=== PATIENT | female | born 1985 | race Caucasian/White ===

== ENCOUNTER 2019-10-17 12:29 | Emergency (ER) | payer BC, SELFPAY ==
--- NOTE | ~2019-10-17 | XR_ITS ---
EXAMINATION: XR abdomen/kub 1V DATE: 10/17/2019 13:12 INDICATION: Right flank pain. TECHNIQUE: A supine view of the abdomen on 2 radiographs was obtained. COMPARISON: CT abdomen and pelvis 10/17/2019 FINDINGS: There are no dilated loops of bowel. There is a phlebolith in right pelvis. There is no uro lithiasis. IMPRESSION: 1. No urolithiasis. Reviewed, dictated and finalized at location E. IMPRESSION: 1. No urolithiasis.
--- NOTE | ~2019-10-17 | CT_ITS ---
EXAMINATION: CT abdomen pelvis wo con DATE: 10/17/2019 13:06 INDICATION: Right flank pain. TECHNIQUE: Computed tomography (CT) of the abdomen and pelvis was performed without intravenous contr ast. Automated exposure control and iterative reconstruction technique were employed. The dose-length product was 1331.68 mGy-cm. COMPARISON: None. FINDINGS: The visualized portions of the lung bases are clear without pneumonia or pleural effusion. The heart size is normal. No pericardial effusion. There is diffuse hepatic steatosis. There are rich ges of cholecystectomy. Calcifications in the spleen are consistent with old granulomatous disease. T he pancreas, adrenal glands, and kidneys are normal. There is no urolithiasis. There are no dilated l oops of bowel. The appendix is normal. There are no pathologically enlarged lymph nodes. There is no free intraperitoneal fluid. There is a supraumbilical ventral hernia containing fat. There is mild th oracolumbar spondylosis. IMPRESSION: 1. No urolithiasis. 2. Diffuse hepatic steatosis. 3. Supraumbilical ventral hernia containing fat. Reviewed, dictated and finalized at location E.
[2019-10-17 12:33] VITALS: BP 125/60; PULSE 91; RESP 18; TEMP 36.8; O2SAT 97
--- NOTE | 2019-10-17 12:46 | ED.ABDPAIN ---
HPI - Abdominal Pain General Chief Complaint: Abdominal Pain <Jerzy Shin PA-C - Last Filed: 10/17/19 14:41> Stated Complaint: right flank pain <Jerzy Shin PA-C - Last Filed: 10/17/19 14:41> Time Seen by Provider: 10/17/19 12:38 <Jerzy Shin PA-C - Last Filed: 10/17/19 14:41> Source: patient <Jerzy Shin PA-C - Last Filed: 10/17/19 14:41> Mode of arrival: ambulatory <Jerzy Shin PA-C - Last Filed: 10/17/19 14:41> Limitations: no limitations <Jerzy Shin PA-C - Last Filed: 10/17/19 14:41> History of Present Illness HPI narrative: Patient is a 34-year-old female who presents with 3 to 4 days of stabbing pain in the right flank had emesis Friday secondary to the pain has had some chills took some Pyridium at home with no improvement. Patient denies similar occurrence in the past. Patient thought she may have a urinary tract infection but has not experienced this type of pain. Patient denies vaginal complaints or bowel changes. Patient has been taking 800 of Motrin and notes that it is the only thing that is helping with her pain and took some today prior to arrival. <Jerzy Shin PA-C - Last Filed: 10/17/19 14:41> Related Data Home Medications: Home Medications Medication Instructions Recorded Confirmed ferrous sulfate 324 mg PO DAILY 01/08/19 02/16/19 <Jerzy Shin PA-C - Last Filed: 10/17/19 14:41> Allergies/Adverse Reactions: Allergies Allergy/AdvReac Type Severity Reaction Status Date / Time No Known Allergies Allergy Verified 10/17/19 12:35 <Jerzy Shin PA-C - Last Filed: 10/17/19 14:41> Review of Systems Review of Systems: All systems reviewed & are unremarkable except as noted in HPI and below <Jerzy Shin PA-C - Last Filed: 10/17/19 14:41> PMFSH Past Medical History Medical History: Medical History (Updated 10/17/19 @ 14:39 by Jerzy Shin PA-C) Anemia due to vitamin B12 deficiency Obesity <Jerzy Shin PA-C - Last Filed: 10/17/19 14:41> Social History Social History: Social History (Updated 10/17/19 @ 12:50 by Jerzy Shin PA-C) Smoking status: Current every day smoker <Jerzy Shin PA-C - Last Filed: 10/17/19 14:41> Exam Narrative: Exam Narrative: GENERAL: Well-appearing, obese, and in no acute distress. HEAD: Normocephalic, atraumatic. EYES: PERRLA and EOMI. ENT: Nares clear, no rhinorrhea or epistaxis. Mucous membranes moist. CHEST: Clear to auscultation. No respiratory distress. No wheezes rales or rhonchi HEART: Regular rate and rhythm. No murmur heard. Normal peripheral pulses. ABDOMEN: Soft, nontender, nondistended EXTREMITIES: Normal range of motion. No edema. SKIN: Warm, dry, no rash. NEURO: No focal deficits. Alert and oriented x3. Cranial nerves II through XII grossly intact PSYCH: Normal mood and affect. <Jerzy Shin PA-C - Last Filed: 10/17/19 14:41> Course Course Emergency Course: Patient in the room aware of case findings treatment plan and diagnosis no high risk changes in the blood work or imaging urinary tract infection is the likely etiology no urolithiasis seen. Patient hydrated and given IV antibiotics in the emergency department <Jerzy Shin PA-C - Last Filed: 10/17/19 14:41> Vital Signs Vital signs: Vital Signs Temperature 98.3 F 10/17/19 12:33 Pulse Rate 91 10/17/19 12:33 Respiratory Rate 18 10/17/19 12:33 Blood Pressure 125/60 10/17/19 12:33 Pulse Oximetry 97 10/17/19 12:33 Temperatur
[2019-10-17 12:52] LABS: Basophils Absolute Auto 0.1 K/mm3 (0.0-0.1); Basophils Percent Auto 0.4 % (0.2-1.2); Eosinophils Absolute Auto 0.4 K/mm3 (0-0.3); Eosinophils Percent Auto 2.8 % (0-4.4); Hematocrit 39.3 % (37.0-47.0); Hemoglobin 12.5 g/dL (12.0-15.0); Immature Granulocyte Absolute 0.06 K/mm3 (0.00-0.031); Immature Granulocyte Percent A 0.5 % (0-0.5); Lymphocytes Absolute Auto 3.69 K/mm3 (0.9-3.2); Lymphocytes Percent Auto 28.5 % (18.3-44.2); Mean Corpuscular HGB Conc 31.8 g/dl (32-36); Mean Corpuscular Hemoglobin 27.5 pg (26-34); Mean Corpuscular Volume 86.4 fl (80-100); Mean Platelet Volume 9.9 fl (7.4-10.4); Monocytes Absolute Auto 0.6 K/mm3 (0.1-0.6); Monocytes Percent Auto 4.6 % (2.6-8.5); Neutrophils Absolute Auto 8.2 K/mm3 (1.3-6.7); Neutrophils Percent Auto 63.2 % (45.5-73.1); Platelet Count Result 287 k/mm3 (150-375); Red Blood Count 4.55 M/mm3 (4.2-5.4); Red Cell Distribution Width 14.6 % (11.5-14.5)
[2019-10-17 13:08] LABS: Alanine Aminotransferase 34 U/L (4-35); Albumin Level 4.5 g/dL (3.5-5.1); Alkaline Phosphatase 106 U/L (38-126); Anion Gap 15.2 mmol/L (7-16); Aspartate Amino Transferase 31 U/L (14-36); Bilirubin,Total 0.4 mg/dL (0.2-1.3); Blood Urea Nitrogen 14 mg/dL (7-17); Calcium 9.1 mg/dL (8.4-10.2); Carbon Dioxide 24 mmol/L (22-30); Chloride 104 mmol/L (98-107); Estimated CRCL calculation 120 ml/min; Estimated Glomerular Filt Rate > 60; Glucose 124 mg/dL (65-105); Potassium 4.2 mmol/L (3.4-5.0); Sodium 139 mmol/L (137-145)
[2019-10-17 13:20] LABS: Add Urine Microscopic? YES; Appearance Urine Cloudy (Clear); Bacteria Urine Trace /hpf; Bilirubin Urine Negative (Negative); Blood Urine 2+ (Negative); Color Urine Yellow (Yellow); Glucose Urine UA Negative (Negative); Ketones Urine Negative (Negative); Leukocyte Esterase Ur 3+ LEU/UL (Negative); Mucus Urine Rare /lpf; Nitrate Urine Positive (Negative); Protein Urine 2+ mg/dL (Negative); RBC Urine 21-50 /hpf (0-2); Specific Grav Ur 1.019 (1.001-1.035); Squamous Epithelial Cell Urine Many /hpf (Few); Urobilinogen Urine Negative mg/dL (<2.0); WBC Clumps Urine Present /HPF; WBC Urine >75 /hpf
[2019-10-17] MEDS: SODIUM CHLORIDE 0.9% IV 1,000 ML 999 ML IV CONT (13:26)
[2019-10-17] MEDS: FAMOTIDINE 20 MG/2 ML VIAL IV PUSH (13:26)
[2019-10-17 13:30] LABS: Lipase 120 U/L (23-300)
[2019-10-17 14:52] VITALS: BP 142/88; PULSE 82; RESP 16; O2SAT 97
== END 2019-10-17 14:53 | disposition home or self-care (01) ==
PROVIDERS: Emergency Medicine Emergency Medical Services; Emergency Provider General Practice; PCP Nurse Practitioner Family
DX: N39.0 Urinary tract infection, site not specified (principal); D51.9 Vitamin B12 deficiency anemia, unspecified; E66.9 Obesity, unspecified; Z68.41 Body mass index [BMI] 40.0-44.9, adult; F17.200 Nicotine dependence, unspecified, uncomplicated; K76.0 Fatty (change of) liver, not elsewhere classified; K43.9 Ventral hernia without obstruction or gangrene
CPT/HCPCS: 36415; 74018; 74176; 80053; 81001; 81025; 83690; 85025; 87077; 87086; 87088; 87186; 96374; 96375; 99284; J0131; J0696; J7030

== ENCOUNTER 2021-05-03 09:38 | Emergency (ER) | payer BC, OTHER, SELFPAY ==
--- NOTE | ~2021-05-03 | XR_ITS ---
EXAMINATION: XR ankle RT min 3V DATE: 05/03/2021 11:36 INDICATION: Right ankle injury TECHNIQUE: Anteroposterior, oblique, mortise, and lateral views of the right ankle were obtained. COMPARISON: None. FINDINGS: Alignment is normal. No fracture. Joint spaces are well maintained. Small Achilles calcaneal spur. T here is an ankle joint effusion. The soft tissues are unremarkable. IMPRESSION: 1. Right ankle joint effusion. No acute osseous abnormality. Reviewed, dictated and finalized at location A. STRIAL/ORGANIZATIONAL PSYCHOLOGIST
[2021-05-03 09:39] VITALS: BP 123/78; PULSE 89; RESP 18; TEMP 36.6; O2SAT 100
--- NOTE | 2021-05-03 12:24 | ED.GENADULT ---
HPI - General Adult General Chief complaint: Extremity Injury, Lower Stated complaint: right ankle pain Time Seen by Provider: 05/03/21 11:21 Source: patient Mode of arrival: ambulatory Limitations: no limitations History of Present Illness HPI narrative: Patient is a 30 complaint of right ankle pain and swelling after inverting her ankle while coming downstairs yesterday. Patient reports that the swelling has gone down since yesterday but she still notices some discomfort when she steps down stairs. She denies any other areas of injury. Patient denies prior fractures to the ankle. Related Data Home Medications Medication Instructions Recorded Confirmed ferrous sulfate 324 mg PO DAILY 01/08/19 03/14/21 levothyroxine 75 mcg PO DAILY 03/14/21 03/14/21 metformin 500 mg PO DAILY 03/14/21 03/14/21 rosuvastatin 5 mg PO DAILY 03/14/21 03/14/21 Allergies Allergy/AdvReac Type Severity Reaction Status Date / Time No Known Allergies Allergy Verified 05/03/21 11:13 Review of Systems Review of Systems: CONSTITUTIONAL: Denies fever, chills, or sweats. EYES: Denies visual changes, redness, or discharge. ENT: Denies rhinorrhea, congestion, sore throat, or otalgia. CARDIOVASCULAR: Denies chest pain, palpitations, or edema. RESPIRATORY: Denies cough or dyspnea. GASTROINTESTINAL: Denies abdominal pain, nausea, vomiting, or diarrhea. GENITOURINARY: Denies dysuria or hematuria. SKIN: Denies rash or itching. MUSCULOSKELETAL: Reports right ankle pain denies back pain, joint pain, or myalgia. NEUROLOGIC: Denies headache, numbness, dizziness, or weakness. PSYCHIATRIC: Denies anxiety or depression. [facility] Past Medical History Medical History (Updated 05/03/21 @ 12:22 by Dorian Santamaria PA-C) Anemia due to vitamin B12 deficiency Obesity Social History Social History (Updated 10/17/19 @ 12:50 by Jerzy Shin PA-C) Smoking status: Current every day smoker Exam Narrative: GENERAL: Well-appearing, well-nourished, and in no acute distress. HEAD: Normocephalic, atraumatic. EYES: PERRLA and EOMI. CHEST: Clear to auscultation. No respiratory distress. No wheezes rales or rhonchi HEART: Regular rate and rhythm. EXTREMITIES: Swelling over the lateral malleolus of the right ankle. Plantar and dorsiflexion intact patient able to invert and rene the ankle. Gait is steady. SKIN: Warm, dry, no rash. NEURO: No focal deficits. Alert and oriented x3. PSYCH: Normal mood and affect. Course Vital Signs Vital signs: Vital Signs Temperature 98 F 05/03/21 09:39 Pulse Rate 89 05/03/21 09:39 Respiratory Rate 18 05/03/21 09:39 Blood Pressure 123/78 05/03/21 09:39 Pulse Oximetry 100 05/03/21 09:39 Temperature 98 F 05/03/21 09:39 Pulse Rate 89 05/03/21 09:39 Respiratory Rate 18 05/03/21 09:39 Blood Pressure 123/78 05/03/21 09:39 Pulse Oximetry 100 05/03/21 09:39 Medical Decision Making MDM Narrative Medical decision making narrative: Patient refused crutches. Patient says she does not need a work note as she works from home. Discussed the need to follow-up with primary care health informatics specialist for further evaluation if symptoms persist as she may need further investigation into the tendons and ligaments. Patient has been informed that if her symptoms persist she may need MRI to further evaluate tendons and ligaments. Patient is agreement with Isacc wrap. Patient denies any chance of and will be prescribed naproxen and cyclobenzaprine. Patient denies any other injuries or concerns. Patient states she is ready for discharge. Differential Diagnosis Differential Diagnosis: Fracture, sprain, strain Vital Signs Vital Signs: Vital Signs Temperature 98 F 05/03/21 09:39 Pulse Rate 89 05/03/21 09:39 Respiratory Rate 18 05/03/21 09:39 Blood Pressure 123/78 05/03/21 09:39 Pulse Oximetry 100 05/03/21 09:39 Temperature 98 F 05/03/21 09:39 Pulse Rate 89 05/03/21 09:39
== END 2021-05-03 12:25 | disposition home or self-care (01) ==
PROVIDERS: Emergency Provider Emergency Medicine; PCP Nurse Practitioner Family
DX: S93.401A Sprain of unspecified ligament of right ankle, initial encounter (principal); X50.0XXA Overexertion from strenuous movement or load, initial encounter
CPT/HCPCS: 73610; 99283

== ENCOUNTER 2021-06-11 14:35 | Emergency (ER) | payer BC, OTHER, SELFPAY ==
[2021-06-11] VITALS (11 sets, daily range): BP systolic 106–140; BP diastolic 66–104; PULSE 75–88; RESP 16–36; TEMP 36.8; O2SAT 94–100
--- NOTE | ~2021-06-11 | XR_ITS ---
EXAMINATION: XR chest 2V 06/11/2021 14:56 INDICATION: Midsternal chest pain PROCEDURE: 2 view chest COMPARISON: No prior studies for comparison. FINDINGS: The lungs are clear. The cardiomediastinal silhouette is within normal limits. There are no pleural effusions. There is no pneumothorax suspected. Calcified granuloma left upper lung. IMPRESSION: 1: NO ACUTE CARDIOPULMONARY DISEASE. Reviewed, dictated and finalized at location A.
--- NOTE | 2021-06-11 14:37 | ECG_ITS ---
Measurements Intervals [place] Rate: 84 P: 49 MD: 160 QRS: 60 QRSD: 86 T: 49 QT: 362 QTc: 428 Interpretive Statements SINUS RHYTHM WITH SINUS ARRHYTHMIA NORMAL ECG NO PREVIOUS ECG AVAILABLE FOR COMPARISON Electronically Signed On 06-11-2021 15:53:45 CDT by Ramon hWitlock M.D.
[2021-06-11 14:52] LABS: Basophils Percent Auto 0.2 % (0.2-1.2); Eosinophils Absolute Auto 0.1 K/mm3 (0-0.3); Eosinophils Percent Auto 0.9 % (0-4.4); Hematocrit 41.7 % (37.0-47.0); Hemoglobin 13.3 g/dL (12.0-15.0); Immature Granulocyte Absolute 0.04 K/mm3 (0.00-0.031); Immature Granulocyte Percent A 0.4 % (0-0.5); Lymphocytes Absolute Auto 3.26 K/mm3 (0.9-3.2); Lymphocytes Percent Auto 35.2 % (18.3-44.2); Mean Corpuscular HGB Conc 31.9 g/dl (32-36); Mean Corpuscular Hemoglobin 28.5 pg (26-34); Mean Corpuscular Volume 89.3 fl (80-100); Mean Platelet Volume 9.1 fl (7.4-10.4); Monocytes Absolute Auto 0.4 K/mm3 (0.1-0.6); Neutrophils Absolute Auto 5.5 K/mm3 (1.3-6.7); Neutrophils Percent Auto 59.3 % (45.5-73.1); Platelet Count Result 296 k/mm3 (150-375); Red Blood Count 4.67 M/mm3 (4.2-5.4); Red Cell Distribution Width 15.1 % (11.5-14.5); White Blood Count 9.3 K/mm3 (4.5-10.0)
[2021-06-11 15:02] LABS: INR 1.1; Prothrombin Time 13.4 Seconds (11.1-14.7)
[2021-06-11 15:03] LABS: Partial Thromboplastin Time 27.5 SECONDS (22.3-36.8)
[2021-06-11 15:10] LABS: Alanine Aminotransferase 19 U/L (4-35); Albumin Level 4.7 g/dL (3.5-5.1); Alkaline Phosphatase 107 U/L (38-126); Anion Gap 8 mmol/L (8-16); Aspartate Amino Transferase 25 U/L (14-36); Bilirubin,Total 0.4 mg/dL (0.2-1.3); Blood Urea Nitrogen 12 mg/dL (7-17); Calcium 8.8 mg/dL (8.4-10.2); Carbon Dioxide 25 mmol/L (22-30); Chloride 104 mmol/L (98-107); Estimated CRCL calculation 111 ml/min; Estimated Glomerular Filt Rate > 60; Glucose 109 mg/dL (65-110); Lipase 255 U/L (23-300); Potassium 3.9 mmol/L (3.4-5.0); Sodium 137 mmol/L (137-145)
[2021-06-11 15:23] LABS: Troponin I < 0.012 ng/mL (0.000-0.034)
[2021-06-11] MEDS: ASPIRIN 81 MG CHEWABLE TABLET 324 MG PO (17:21)
[2021-06-11 17:46] LABS: Troponin I < 0.012 ng/mL (0.000-0.034)
--- NOTE | 2021-06-11 18:12 | ED.CHESTPAIN ---
HPI - Chest Pain General Chief Complaint: Chest Pain Stated Complaint: Chest Pain Time Seen by Provider: 06/11/21 17:16 Source: patient History of Present Illness HPI narrative: Patient presents with chest pain. Reports a squeezing sensation since approximately 1:00 this evening. Reports he has had pain there for the past 2 days intermittently initially started after she swallowed something and felt like there is something in her chest. Today she woke up from a nap and had the sensation. Reports some shortness of breath. Reports her mom has recently from a heart attack she was concerned for the same so came to the ER for further evaluation. Her mom at 57 she denies recent hospitalizations prior history of blood clot. Related Data Home Medications Medication Instructions Recorded Confirmed ferrous sulfate 324 mg PO DAILY 01/08/19 03/14/21 levothyroxine 75 mcg PO DAILY 03/14/21 03/14/21 metformin 500 mg PO DAILY 03/14/21 03/14/21 rosuvastatin 5 mg PO DAILY 03/14/21 03/14/21 Allergies Allergy/AdvReac Type Severity Reaction Status Date / Time No Known Allergies Allergy Verified 06/11/21 17:25 Review of Systems Review of Systems: CONSTITUTIONAL: Denies fever, chills, or sweats. EYES: Denies visual changes, redness, or discharge. ENT: Denies rhinorrhea, congestion, sore throat, or otalgia. CARDIOVASCULAR: Denies palpitations, or edema. RESPIRATORY: Denies cough or dyspnea. GASTROINTESTINAL: Denies abdominal pain, nausea, vomiting, or diarrhea. GENITOURINARY: Denies dysuria or hematuria. SKIN: Denies rash or itching. MUSCULOSKELETAL: Denies back pain, joint pain, or myalgia. NEUROLOGIC: Denies headache, numbness, dizziness, or weakness. PSYCHIATRIC: Denies anxiety or depression. All systems reviewed & are unremarkable except as noted in HPI and below PMFSH Past Medical History Medical History Anemia due to vitamin B12 deficiency Obesity Social History Social History Smoking status: Current every day smoker Exam Narrative: GENERAL: Well-appearing, well-nourished, and in no acute distress. HEAD: Normocephalic, atraumatic. EYES: PERRLA and EOMI. ENT: Nares clear, no rhinorrhea or epistaxis. Mucous membranes moist. NECK: Supple. No masses. No JVD CHEST: Clear to auscultation. No respiratory distress. No wheezes rales or rhonchi HEART: Regular rate and rhythm. No murmur heard. Normal peripheral pulses. ABDOMEN: Soft, nontender, nondistended, normal active bowel sounds. EXTREMITIES: Normal range of motion. No edema. SKIN: Warm, dry, no rash. NEURO: No focal deficits. Alert and oriented x3. PSYCH: Normal mood and affect. Course Reevaluation(s) Reevaluation #1: Patient resting comfortably results and plan reviewed with patient. Patient is comfortable outpatient plan. Date: 06/11/21 Time: 18:52 Vital Signs Vital signs: Vital Signs Temperature 36.8 C 06/11/21 14:42 Pulse Rate 83 06/11/21 14:42 Respiratory Rate 18 06/11/21 14:42 Blood Pressure 140/83 06/11/21 14:42 Pulse Oximetry 94 06/11/21 14:42 Temperature 36.8 C 06/11/21 14:42 Pulse Rate 86 06/11/21 17:54 Respiratory Rate 16 06/11/21 17:54 Blood Pressure 106/67 06/11/21 17:54 Pulse Oximetry 98 06/11/21 17:54 MDM - Chest Pain MDM Narrative Medical decision making narrative: H&P as above, vss, pt looks clinically well, exam reassuring, labs clinically unremarkable to include delta troponin, img clinically unremarkable, additional labs/img considered, symptomatic relief available as needed, on reevaluation pt continues to looks clinically well. Suspect esophageal spasm, dns ACS as patient has negative delta troponin low concern for PE as she has PERC negative, low concern for pneumothorax, dissection. plan to tx/monitor as op w/ pcm f/u findings/plan discussed with pt, pt agree/comfortable wi
[2021-06-11] MEDS: LIDOCAINE HCL 2% VISC SOLN 15 ML UDC 20 ML PO (18:39)
[2021-06-11] MEDS: MAG HYDROX/AL HYDROX/SIMETH 30 ML UDC PO (18:39)
== END 2021-06-11 19:19 | disposition home or self-care (01) ==
PROVIDERS: Emergency Medicine; Emergency Provider Emergency Medicine; PCP Nurse Practitioner Family
DX: R07.89 Other chest pain (principal); D51.9 Vitamin B12 deficiency anemia, unspecified; E66.9 Obesity, unspecified; Z68.41 Body mass index [BMI] 40.0-44.9, adult; F17.200 Nicotine dependence, unspecified, uncomplicated
CPT/HCPCS: 36415; 71046; 80053; 83690; 84484; 85025; 85610; 85730; 93005; 99284; A9270

== ENCOUNTER → 2021-08-17 01:10 | Outpatient (CLI) | payer BC, OTHER, SELFPAY ==
[2021-08-17 13:31] LABS: SARS-CoV-2 RNA PCR Negative
== END ==
PROVIDERS: PCP Internal Medicine; Visit Provider Internal Medicine
DX: R05.9 Cough, unspecified (principal); Z20.822 Contact with and (suspected) exposure to COVID-19
CPT/HCPCS: C9803; U0003; U0005

== ENCOUNTER 2021-08-21 15:53 | Outpatient (CLI) | payer BC, OTHER, SELFPAY ==
--- NOTE | ~2021-08-21 | XR_ITS ---
EXAMINATION: XR chest 2V DATE: 08/21/2021 16:20 INDICATION: Cough TECHNIQUE: PA and lateral views of the chest are obtained. COMPARISON: 06/11/2021 FINDINGS: The lungs are free of acute opacities. There is no pleural effusion or pneumothorax. The ca rdiomediastinal silhouette is normal. There is mild thoracic spondylosis. Calcified pulmonary nodules and calcified left hilar lymph nodes are consistent with old granulomatous disease. IMPRESSION: 1. No acute cardiopulmonary abnormality. Reviewed, dictated and finalized at location F.
== END 2021-08-21 15:54 | disposition home or self-care (01) ==
PROVIDERS: PCP Nurse Practitioner Family; Visit Provider Nurse Practitioner Family
DX: R05.9 Cough, unspecified (principal)
CPT/HCPCS: 71046

== ENCOUNTER 2021-09-28 11:51 | Outpatient (CLI) | payer BC, OTHER, SELFPAY ==
[2021-09-28 12:20] LABS: Hematocrit 39.8 % (37.0-47.0); Hemoglobin 12.4 g/dL (12.0-15.0)
[2021-09-28 12:53] LABS: Anion Gap 6 mmol/L (8-16); Blood Urea Nitrogen 8 mg/dL (7-17); Carbon Dioxide 26 mmol/L (22-30); Chloride 105 mmol/L (98-107); Estimated Glomerular Filt Rate > 60; Glucose 95 mg/dL (65-110); Potassium 4.2 mmol/L (3.4-5.0); Sodium 137 mmol/L (137-145)
== END 2021-09-28 11:52 | disposition home or self-care (01) ==
LOC: ANHSURGERY 11:57
PROVIDERS: Anesthesiology; PCP Nurse Practitioner Family; Visit Provider Surgery
DX: E66.01 Morbid (severe) obesity due to excess calories (principal); Z68.41 Body mass index [BMI] 40.0-44.9, adult; D50.9 Iron deficiency anemia, unspecified; Z01.818 Encounter for other preprocedural examination
CPT/HCPCS: 36415; 80048; 85014; 85018

== ENCOUNTER 2021-10-03 01:15 | Day surgery (SDC) | payer BC, OTHER, SELFPAY ==
[2021-09-26 14:36] VITALS: BMI 40.8
--- NOTE | 2021-09-26 14:39 | SUR.PREOP ---
Report to the Outpatient Waiting Room, entrance under the green pavilion located off [facility], at time _0600 on date _10/03/21 . OR Time: 07 . - You and your visitor will be asked a series of questions to screen for COVID 19 for your protection. - Only one visitor is allowed at this time. - The patient visitor is requested to leave or wait in car when not with patient. - A mask is required within the hospital. Patients may have clear liquids (water, carbonated beverages, clear teas, apple juice) until 3 hours prior to surgery with a maximum of 20 ounces. - No food from midnight until time of surgery - Infants may have breast milk until 4 hours before surgery, infant formula 6 hours prior to surgery. - Children will be allowed to drink immediately following surgery. If applicable, please bring a bottle or sippy cup to assist with drinking. Juice, water, soda, and popsicles are readily available. For infants on formula, please bring formula the day of surgery. Pacifiers are allowed. Take the following medications with a SIP of water the morning of surgery: _levothyroxine Medications to discontinue per physician __vitamin c and r65 Date to take last dose_09/30/21 Please no make-up, nail uzbek, hairspray, perfume, deodorant, or body powder the day of surgery. No jewelry (including any body piercings) or valuables the day of surgery, leave them at home. Please take a shower or bath the night before, or the morning of, surgery with an antibacterial soap. Wear comfortable, loose fitting clothing. Children are encouraged to wear pajamas. - Jewelry must be removed prior to entering the operating room. Rings and piercings that are not removed may be cut off. - The hospital will not accept responsibility for valuables. - Please leave all valuables, including medications, at home the day of surgery. If you are going home after surgery, a licensed charter coach driver must drive you home. - NO public transportation without another adult. - We recommend that an adult stay with you for 24 hours following discharge. - We also recommend that you do not drive, make important decision, drink alcoholic beverages, or take any drugs that were not prescribed by your health care provider for at least 24 hours after your discharge time. For Pediatric surgeries, we recommend two adults accompany the child home (only one inside the building at this time). Follow any additional instructions given to you from your surgeon. If you or anyone in your household have experienced Covid symptoms in the past week, please notify your surgeon or the nurse liaison at the phone number below for possible testing. Telephone instructions given to _cole veras and asked if any additional questions and then verbalized understanding. Patient advised to call surgeon office or pre surgery nurse liaison [phone] if any additional questions.
--- NOTE | 2021-10-02 12:09 | WPDANESEPPF ---
Anes - Initial Pre Proc Eval Procedure: Operation Date: 10/03/21 07:30 Proposed Procedures p Anal Sphincterotomy - Nick Joe MD Date/Time: 10/02/21 12:09 Surgeon: Nick Joe MD Pre Op Diagnosis: chronic anal fissure Patient Data Age: 36 Gender: F Height: 1.7 m Weight: 118.18 kg Allergies Allergy/AdvReac Type Severity Reaction Status Date / Time hydroxyzine Allergy Intermediate Hives Verified 10/03/21 06:34 Home Medications Medication Instructions Recorded Confirmed Type ferrous sulfate 324 mg (65 mg 324 mg PO DAILY 01/08/19 10/03/21 History iron) tablet,delayed release levothyroxine 75 mcg tablet 75 mcg PO DAILY 03/14/21 10/03/21 History metformin 500 mg tablet 500 mg PO DAILY 03/14/21 10/03/21 History semaglutide 1 mg/dose (4 mg/3 mL) 1 mg subcut WEEKLY 07/30/21 10/03/21 History subcutaneous pen injector (Ozempic) ascorbic acid (vitamin C) 500 mg 500 mg PO DAILY 09/26/21 10/03/21 History tablet (Vitamin C) cyanocobalamin (vitamin B-12) 1,000 mcg sublingual DAILY 09/26/21 10/03/21 History 1,000 mcg sublingual tablet Patient hx anesthesia problems: none Family hx anesthesia problems: none Results Review: All pre-operative results and documents have been reviewed as part of the pre-operative evaluation. 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 Hypothyroidism Morbid obesity with BMI of 40.0-44.9, adult Obesity Smoker Surgical History Surgical History Delivery by section (03/06/17) rpt c/s Delivery by section (09/07/10) rpt c/s Delivery by section (07/21/04) primary c/s History of colposcopy History of gynecological procedure (02/28/21) suction D&C missed AB History of tonsillectomy Family History Family History Other Hypertension maternal aunt Mother Acute myocardial infarction Social History Social History Smoking status: Current every day smoker Tobacco type: cigarettes Additional smoking assessment comments: cigarettes 1/2ppd x 20 years Alcohol intake: current Drinks per week: 1 Alcohol use details: 1 per month Substance use: former Substance use type: marijuana Last use: 20 + years Living arrangements: with family Additional living arrangements comments: single Additional occupation/education comments: [employer] Gender identity (if verbalized by the patient): Female Sexual Orientation (if Verbalized by the Patient): Straight or Heterosexual Spiritual care concerns: No Anes - Eval Final PreProcedure Day of Procedure 10/02/21 12:09 Patient weight: morbidly obese Heart: regular rate and rhythm Lungs: clear to auscultation and normal air movement Airway: Mallampati scale class II Neurological: alert and oriented Last oral intake: >/= 8 hours ASA classification: III Emergent: no Anesthetic plan: proceed Anesthesia type and monitoring: general ETT Results Review: All pre-operative results and documents have been reviewed as part of the pre-operative evaluation. Informed Consent: The patient's anesthetic plan and its attendant risks and benefits were discussed with the patient/family/POA. Questions were solicited and answers provided to the satisfaction of the patient/family/POA.
[2021-10-03] VITALS (7 sets, daily range): BP systolic 109–130; BP diastolic 53–78; PULSE 79–112; RESP 16–22; TEMP 35.7–36.3; O2SAT 96–100
[2021-10-03] MEDS: LACTATED RINGERS 1,000 ML 30 ML IV CONT (07:05)
[2021-10-03] MEDS: ACETAMINOPHEN 500 MG TABLET 1000 MG PO (07:08)
[2021-10-03] MEDS: KETOROLAC 15 MG/ML VIAL (*BKC) IV PUSH (07:08)
--- NOTE | 2021-10-03 07:10 | WPDHPUPDATE1 ---
History and Physical Update Update Date/Time: 10/03/21 07:10 History and Physical has been reviewed, including an updated exam of the patient. There are NO changes in the patient's condition. Risks, benefits, and alternatives have been discussed and questions answered. Patient agrees to proceed with procedure.
[2021-10-03 07:11] LABS: Glucose Point of Care 99 mg/dl (65-105)
[2021-10-03] MEDS: ceFAZolin 2 GM/D5W 50 ML 2 GM/50 ML BAG IVPB (07:20)
--- NOTE | 2021-10-03 08:00 | P.OP_ITS ---
Procedure Note - Detailed Date of Procedure 10/03/21 Pre-op Diagnosis chronic anal fissure Post-op Diagnosis Same Procedure Performed Lateral internal sphincterotomy Surgeon Nick Joe MD General Internal Medicine Doctor Janee Gillespie [facility] Anesthesia General and Local (0.25% bupivacaine with epinephrine) Indications Patient has a sizable posterior midline anal fissure. Medical treatment has been tried and has failed. She has had this fissure for well over 3 months. She is taken to surgery now for lateral internal sphincterotomy. Findings Posterior midline anal fissure with small sentinel tag Description of Procedure Patient was taken to surgery and induced into general anesthesia. She was placed in prone abimbola-knife position. The buttocks were taped apart. Prep and drape was carried out. The midline fissure was visualized. Digital rectal exam was performed. Local anesthesia was infiltrated using 40 cc deep subdermal, 40 cc intra sphincteric. A medium Hill-Daniels anoscope was introduced and the left lateral position was exposed. The lower 3rd of the internal sphincter muscle was able to be palpated at like a band. A small incision was made over the sphincter muscle with the cautery. Using a curved clamp I gently pulled up the internal sphincter muscle and divided it with the cautery. There was no bleeding. Medium Hill-Daniels anoscope was able to be easily introduced into the anal canal after the sphincterotomy. Wound was dressed was Xeroform gauze fluffs and tape. Patient was returned to supine position, awakened and taken to recovery in good condition. Estimated Blood Loss -2 Drains No Packing No Pathology None sent Complications No immediate complications Condition Stable Disposition PACU [facility] Billing Surgery - Charge Forward: Surgery Billing (Lateral internal sphincterotomy)
[2021-10-03] MEDS: BUPIVACAINE/EPINEPHRINE 0.25% 50 ML VIAL INFILTRATE (08:02)
[2021-10-03 08:23] LABS: Glucose Point of Care 103 mg/dl (65-105)
[2021-10-03] MEDS: ONDANSETRON INJ 4 MG/2 ML VIAL IV PUSH (08:24)
== END 2021-10-03 09:35 | disposition home or self-care (01) ==
PROVIDERS: PCP Nurse Practitioner Family; Visit Provider Surgery
PROC: (CPT 46200; principal; 2021-10-03 08:30)
DX: K60.1 Chronic anal fissure (principal); D51.9 Vitamin B12 deficiency anemia, unspecified; E06.3 Autoimmune thyroiditis; F17.210 Nicotine dependence, cigarettes, uncomplicated; E66.01 Morbid (severe) obesity due to excess calories; Z68.41 Body mass index [BMI] 40.0-44.9, adult
CPT/HCPCS: 46200; 36415; 80048; 82948; 85014; 85018; A9270; J0330; J0690; J1100; J1885; J2250; J2405; J2704; J3010; J7120

== ENCOUNTER 2021-10-10 09:34 | Emergency (ER) | payer BC, OTHER, SELFPAY ==
--- NOTE | ~2021-10-10 | XR_ITS ---
EXAMINATION: XR chest 1V portable DATE: 10/10/2021 10:13 INDICATION: Chest pressure. Bilateral arm numbness and tingling. TECHNIQUE: A single frontal view of the chest was obtained. COMPARISON: Chest 2 views 08/21/2021, CT abdomen and pelvis 10/17/2019 FINDINGS: A calcified left lung nodule and calcified mediastinal lymph nodes are consistent with old granulomatous disease. No pleural effusion or pneumothorax. The heart size is normal. IMPRESSION: 1. No acute cardiopulmonary disease. Reviewed, dictated and finalized at location A.
--- NOTE | ~2021-10-10 | CT_ITS ---
EXAMINATION: CTA chest PE protocol DATE: 10/10/2021 12:04 INDICATION: Chest pain. TECHNIQUE: Computed tomography angiography (CTA) of the chest was performed with 100 mL Omnipaque-350 intravenous contrast timed to evaluate the pulmonary arteries. Coronal maximum intensity projection 3D-reconstructions were created by the technologist. Automated exposure control and iterative reconst ruction technique were employed. The dose-length product was 891.69 mGy-cm. COMPARISON: CT abdomen and pelvis 10/17/2019 FINDINGS: The lungs demonstrate mild atelectasis. A calcified left lung nodule and calcified left hil ar and mediastinal lymph nodes are consistent with old granulomatous disease. No pleural effusion. Th e heart size is normal. No pericardial effusion. There is no pulmonary embolus. There are changes of cholecystectomy. There is mild thoracic spondylosis. IMPRESSION: 1. No pulmonary embolus. Reviewed, dictated and finalized at location A. IMPRESSION: 1. No pulmonary embolus.
[2021-10-10 09:38] VITALS: BP 122/77; PULSE 77; RESP 15; TEMP 36.8; O2SAT 98
--- NOTE | 2021-10-10 09:48 | ECG_ITS ---
Measurements Intervals [place] Rate: 75 P: 46 OR: 179 QRS: 40 QRSD: 92 T: 39 QT: 361 QTc: 405 Interpretive Statements SINUS RHYTHM WITH SINUS ARRHYTHMIA BASELINE ARTIFACT- II, III, V3-V4 NORMAL ECG Electronically Signed On 10-10-2021 22:23:01 CDT by Lul Bateman D.O.
--- NOTE | 2021-10-10 09:48 | ED.CHESTPAIN ---
HPI - Chest Pain General Chief Complaint: Chest Pain Stated Complaint: arms tingling, chest hurts, nauseated Time Seen by Provider: 10/10/21 09:37 Source: patient Mode of arrival: ambulatory Limitations: no limitations History of Present Illness HPI narrative: 36-year-old female presents today with complaints of chest pain and bilateral arm numbness that started yesterday. Pain is intermittent and she describes it as a pressure sensation. Patient denies any relieving factors or aggravating factors. Patient denies jaw pain, shortness of breath, cough, runny nose, sore throat. She does have a son at home that is currently sick. Related Data Home Medications Medication Instructions Recorded Confirmed ferrous sulfate 324 mg (65 mg 324 mg PO DAILY 01/08/19 10/10/21 iron) tablet,delayed release levothyroxine 75 mcg tablet 75 mcg PO DAILY 03/14/21 10/10/21 metformin 500 mg tablet 500 mg PO DAILY 03/14/21 10/10/21 semaglutide 1 mg/dose (4 mg/3 mL) 1 mg subcut WEEKLY 07/30/21 10/10/21 subcutaneous pen injector (Ozempic) ascorbic acid (vitamin C) 500 mg 500 mg PO DAILY 09/26/21 10/10/21 tablet (Vitamin C) cyanocobalamin (vitamin B-12) 1,000 mcg sublingual DAILY 09/26/21 10/10/21 1,000 mcg sublingual tablet ondansetron HCl 4 mg tablet 4 mg PO PRN 10/10/21 10/10/21 Allergies Allergy/AdvReac Type Severity Reaction Status Date / Time hydroxyzine Allergy Intermediate Hives Verified 10/10/21 09:44 Review of Systems Review of Systems: CONSTITUTIONAL: Does not feel herself. Denies fever, chills, or sweats. EYES: Denies visual changes, redness, or discharge. ENT: Denies rhinorrhea, congestion, sore throat, or otalgia. CARDIOVASCULAR: Chest pain with numbness to bilateral arms. Denies palpitations, or edema. RESPIRATORY: Denies cough or dyspnea. GASTROINTESTINAL: Denies abdominal pain, nausea, vomiting, or diarrhea. GENITOURINARY: Denies dysuria or hematuria. SKIN: Denies rash or itching. MUSCULOSKELETAL: Denies back pain, joint pain, or myalgia. NEUROLOGIC: Denies headache, numbness, dizziness, or weakness. PSYCHIATRIC: Denies anxiety or depression. 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 Hypothyroidism Morbid obesity with BMI of 40.0-44.9, adult Obesity Smoker Surgical History Surgical History Delivery by section (03/06/17) rpt c/s Delivery by section (09/07/10) rpt c/s Delivery by section (07/21/04) primary c/s History of colposcopy History of gynecological procedure (02/28/21) suction D&C missed AB History of tonsillectomy Family History Family History Other Hypertension maternal aunt Mother Acute myocardial infarction Social History Social History Smoking status: Current every day smoker Tobacco type: cigarettes Additional smoking assessment comments: cigarettes 1/2ppd x 20 years Alcohol intake: current Drinks per week: 1 Alcohol use details: 1 per month Substance use: former Substance use type: marijuana Last use: 20 + years Additional living arrangements comments: single 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 HEAD: Normocephalic, atraumatic. EYES: PERRLA and EOMI. ENT: Nares clear, no rhinorrhea or epistaxis. Mucous membranes moist. Oropharynx without tonsillar hypertrophy exudate or other lesions. Bilateral TMs pearly grewal nonbulging NECK: Supple. No adenopathy or masses. No carotid bruits or JVD CHEST: Clear to a
[2021-10-10 09:49] VITALS: BP 128/81; BP 133/75; PULSE 72; PULSE 83
[2021-10-10 09:51] VITALS: BP 117/73; PULSE 87
[2021-10-10 10:14] LABS: Appearance Urine Clear (Clear); Bilirubin Urine Negative (Negative); Blood Urine Trace-lysed (Negative); Color Urine Yellow (Yellow); Glucose Urine UA Negative (Negative); Ketones Urine Negative (Negative); Leukocyte Esterase Ur 1+ LEU/UL (Negative); Nitrate Urine Negative (Negative); Protein Urine Negative (Negative); Specific Grav Ur <= 1.005 (1.001-1.035); Urobilinogen Urine 0.2 mg/dL (<2.0)
[2021-10-10 10:20] LABS: Bacteria Urine Trace /hpf; Mucus Urine Rare /lpf; Squamous Epithelial Cell Urine Moderate /hpf (Few); WBC Urine 0-3 /hpf
[2021-10-10 10:21] LABS: Add Urine Microscopic? YES; Basophils Percent Auto 0.3 % (0.2-1.2); Eosinophils Absolute Auto 0.3 K/mm3 (0-0.3); Hematocrit 40.1 % (37.0-47.0); Hemoglobin 12.5 g/dL (12.0-15.0); Immature Granulocyte Absolute 0.04 K/mm3 (0.00-0.031); Immature Granulocyte Percent A 0.4 % (0-0.5); Lymphocytes Percent Auto 35.2 % (18.3-44.2); Mean Corpuscular HGB Conc 31.2 g/dl (32-36); Mean Corpuscular Hemoglobin 27.8 pg (26-34); Mean Corpuscular Volume 89.3 fl (80-100); Mean Platelet Volume 9.4 fl (7.4-10.4); Monocytes Absolute Auto 0.5 K/mm3 (0.1-0.6); Neutrophils Absolute Auto 5.4 K/mm3 (1.3-6.7); Neutrophils Percent Auto 56.1 % (45.5-73.1); Platelet Count Result 268 k/mm3 (150-375); Red Blood Count 4.49 M/mm3 (4.2-5.4); Red Cell Distribution Width 14.9 % (11.5-14.5); White Blood Count 9.7 K/mm3 (4.5-10.0)
[2021-10-10 10:32] LABS: Alanine Aminotransferase 25 U/L (6-35); Albumin Level 4.4 g/dL (3.5-5.1); Alkaline Phosphatase 98 U/L (38-126); Anion Gap 8 mmol/L (8-16); Aspartate Amino Transferase 26 U/L (14-36); Bilirubin,Total 0.3 mg/dL (0.2-1.3); Blood Urea Nitrogen 10 mg/dL (7-17); Carbon Dioxide 25 mmol/L (22-30); Chloride 105 mmol/L (98-107); Estimated Glomerular Filt Rate > 60; Glucose 88 mg/dL (65-110); Potassium 4.1 mmol/L (3.4-5.0); Sodium 138 mmol/L (137-145)
[2021-10-10 10:43] LABS: Troponin I < 0.012 ng/mL (0.000-0.034)
[2021-10-10 10:46] LABS: SARS-CoV-2 RNA PCR Negative
[2021-10-10 10:49] VITALS: BP 115/70; PULSE 79; RESP 19; O2SAT 100
[2021-10-10] MEDS: SODIUM CHLORIDE 0.9% IV 1,000 ML 999 ML IV CONT (10:50)
[2021-10-10] MEDS: KETOROLAC 30 MG/ML VIAL (*BKC) IV PUSH (12:31)
[2021-10-10 12:37] VITALS: BP 112/65; PULSE 81; RESP 15; O2SAT 100
[2021-10-10 12:54] LABS: Troponin I < 0.012 ng/mL (0.000-0.034)
== END 2021-10-10 12:39 | disposition home or self-care (01) ==
PROVIDERS: Emergency Provider Nurse Practitioner Family; PCP Nurse Practitioner Family
DX: R07.89 Other chest pain (principal); Z20.822 Contact with and (suspected) exposure to COVID-19; F17.210 Nicotine dependence, cigarettes, uncomplicated; E11.9 Type 2 diabetes mellitus without complications; E03.9 Hypothyroidism, unspecified; Z79.84 Long term (current) use of oral hypoglycemic drugs
CPT/HCPCS: 36415; 71045; 71275; 80053; 81001; 81025; 84484; 85025; 85380; 93005; 96361; 96374; 99284; C9803; J1885; J7030; Q9967; U0003; U0005

== ENCOUNTER 2023-03-29 01:41 | Emergency (ER) | payer BC, MEDICAID, SELFPAY ==
[2023-03-29 01:59] VITALS: BP 132/76; PULSE 75; RESP 17; TEMP 36.5; O2SAT 97
--- NOTE | 2023-03-29 02:03 | ED.PREGNANCY ---
HPI - General Chief complaint: Vaginal Bleeding Stated complaint: RULE OUT ECTOPIC Time Seen by Provider: 03/29/23 01:50 Source: patient and old records reviewed Mode of arrival: EMS Limitations: no limitations History of Present Illness HPI Narrative: Patient is a 38-year-old female who presents the ED with report of vaginal bleeding. Patient is , Hx of multiple miscarriages. Currently approx 10 weeks gestation. Patient reports she had an ultrasound on 03/10 which showed a live IUP. She was around 7 weeks gestation about time. Patient reports she developed vaginal bleeding yesterday around 2:00 p.m. She states the bleeding is very mild at first, more like spotting, noticed with wiping. She denied noticing any clots or tissue. She did report pain throughout her lower abdomen. Reports ongoing nausea and vomiting, denies fevers. Denies dysuria hematuria. OBGYN is Dr. Stallings. Patient went to [facility] today for bleeding and was told they did not have ultrasound capabilities other hospital. She was sent here for further evaluation. Related Data Home Medications Medication Instructions Recorded Confirmed levothyroxine 100 mcg tablet 100 mcg PO DAILY 02/17/23 03/25/23 (Synthroid) Allergies Allergy/AdvReac Type Severity Reaction Status Date / Time hydroxyzine Allergy Intermediate Hives Verified 03/29/23 02:03 Review of Systems Review of Systems: CONSTITUTIONAL: Denies fever, chills, or sweats. CARDIOVASCULAR: Denies chest pain. RESPIRATORY: Denies dyspnea. GASTROINTESTINAL: See HPI. GENITOURINARY: See HPI. All systems reviewed & are unremarkable except as noted in HPI and below PMFSH Past Medical History Medical History Abnormal glucose tolerance in Anemia due to vitamin B12 deficiency Diabetes Geetha's disease HSV-1 infection HSV-2 infection Hypothyroidism Morbid obesity with BMI of 40.0-44.9, adult Obesity Smoker Surgical History Surgical History Delivery by section (03/06/17) rpt c/s Delivery by section (09/07/10) rpt c/s Delivery by section (07/21/04) primary c/s H/O rectal sphincterotomy Lateral internal sphincterotomy 10/03/2021 History of colposcopy History of gynecological procedure (02/28/21) suction D&C missed AB History of tonsillectomy Family History Family History Other Hypertension maternal aunt Mother Acute myocardial infarction Social History Social History Smoking status: Current every day smoker Tobacco type: cigarettes Second hand tobacco smoke exposure: Yes Additional smoking assessment comments: cigarettes 1/2ppd x 20 years Alcohol intake: former Drinks per week: 1 Alcohol use details: 1 per month Substance use: former Substance use type: marijuana Last use: 20 + years Lack of Transportation: No Lack of Food: Never True Current Housing: I Have Housing Concerned About Future Housing: No Difficulty Paying Gas/Electric Bills: No Difficulty Paying for Meds: No Currently Unemployed: No Difficulty w/ Childcare or Family Care: No Living arrangements: with family Additional living arrangements comments: single Occupation/Education: occupation 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 HEAD: Normocephalic, atraumatic. RESPIRATORY: Airway patent, respirations nonlabored. CARDIOVASCULAR: Regular rate and rhythm. ABDOMINAL: Soft, mild midline lower abdominal tenderness, nondistended. [place]
--- NOTE | 2023-03-29 02:10 | PC.NURSE ---
ERP in room performing bedside US.
[2023-03-29 02:48] LABS: Appearance Urine Cloudy (Clear); Bacteria Urine 1+ /hpf; Bilirubin Urine Negative (Negative); Blood Urine Negative (Negative); Color Urine Yellow (Yellow); Glucose Urine UA Negative (Negative); Ketones Urine Negative (Negative); Leukocyte Esterase Ur Trace LEU/UL (Negative); Need Manual Microscopic Reviewed; Nitrate Urine Negative (Negative); Non Pathogenic Casts 0-2; Protein Urine Negative (Negative); RBC Urine 51-100 /hpf (0-2); Specific Grav Ur 1.014 (1.001-1.035); Squamous Epithelial Cell Urine Few /hpf (Few); Urobilinogen Urine 0.2 mg/dL (<2.0); pH Urine 5.5 (5.0-9.0)
[2023-03-29 02:53] LABS: Add Urine Microscopic? YES
== END 2023-03-29 03:44 | disposition home or self-care (01) ==
LOC: ANHED 02:23
PROVIDERS: Emergency Provider Physician Assistant; PCP Nurse Practitioner Family
DX: O20.0 Threatened abortion (principal); O26.891 Other specified pregnancy related conditions, first trimester; R82.71 Bacteriuria; O09.522 Supervision of elderly multigravida, second trimester; O99.281 Endocrine, nutritional and metabolic diseases complicating pregnancy, first trimester; E06.3 Autoimmune thyroiditis; O99.211 Obesity complicating pregnancy, first trimester; E66.01 Morbid (severe) obesity due to excess calories; O24.912 Unspecified diabetes mellitus in pregnancy, second trimester; O99.012 Anemia complicating pregnancy, second trimester; D51.9 Vitamin B12 deficiency anemia, unspecified; O99.331 Smoking (tobacco) complicating pregnancy, first trimester; F17.210 Nicotine dependence, cigarettes, uncomplicated; Z3A.10 10 weeks gestation of pregnancy
CPT/HCPCS: 81001; 87086; 87088; 99283

== ENCOUNTER 2023-05-14 15:17 | Outpatient (CLI) | payer BC, MEDICAID, SELFPAY ==
--- NOTE | 2023-05-14 | ECG_ITS ---
Measurements Intervals [place] Rate: 72 P: 54 CT: 175 QRS: 44 QRSD: 94 T: 28 QT: 409 QTc: 450 Interpretive Statements SINUS RHYTHM WITH OCCASIONAL VENTRICULAR PREMATURE COMPLEXES BORDERLINE ECG COMPARED TO ECG 10/10/2021 09:43:49 NO SIGNIFICANT CHANGES Electronically Signed On 05-14-2023 16:32:05 PROJECT GEOPHYSICIST by Nolberto Osman M.D.
== END 2023-05-14 15:18 | disposition home or self-care (01) ==
LOC: ANHCARD 15:20
PROVIDERS: PCP Nurse Practitioner Family; Visit Provider Obstetrics & Gynecology Maternal & Fetal Medicine
DX: O24.414 Gestational diabetes mellitus in pregnancy, insulin controlled (principal); Z68.42 Body mass index [BMI] 45.0-49.9, adult; E06.3 Autoimmune thyroiditis; O09.522 Supervision of elderly multigravida, second trimester; Z3A.00 Weeks of gestation of pregnancy not specified; R94.31 Abnormal electrocardiogram [ECG] [EKG]
CPT/HCPCS: 93005

== ENCOUNTER 2024-02-24 10:10 | Outpatient (CLI) | payer BC, MEDICAID, SELFPAY ==
[2024-02-24 10:47] LABS: Basophils Percent Auto 0.4 % (0.2-1.2); Eosinophils Absolute Auto 0.3 K/mm3 (0-0.3); Eosinophils Percent Auto 2.6 % (0-4.4); Hematocrit 39.6 % (37.0-47.0); Hemoglobin 12.5 g/dL (12.0-15.0); Immature Granulocyte Absolute 0.04 K/mm3 (0.00-0.031); Immature Granulocyte Percent A 0.4 % (0-0.5); Lymphocytes Absolute Auto 3.26 K/mm3 (0.9-3.2); Lymphocytes Percent Auto 33.5 % (18.3-44.2); Mean Corpuscular HGB Conc 31.6 g/dl (32-36); Mean Corpuscular Hemoglobin 28.3 pg (26-34); Mean Corpuscular Volume 89.8 fl (80-100); Monocytes Absolute Auto 0.5 K/mm3 (0.1-0.6); Monocytes Percent Auto 4.7 % (2.6-8.5); Neutrophils Absolute Auto 5.7 K/mm3 (1.3-6.7); Neutrophils Percent Auto 58.4 % (45.5-73.1); Platelet Count Result 257 k/mm3 (150-375); Red Blood Count 4.41 M/mm3 (4.2-5.4); Red Cell Distribution Width 14.6 % (11.5-14.5); White Blood Count 9.7 K/mm3 (4.5-10.0)
[2024-02-24 11:04] LABS: Alanine Aminotransferase 19 U/L (6-35); Albumin Level 4.6 g/dL (3.5-5.1); Alkaline Phosphatase 97 U/L (38-126); Anion Gap 9 mmol/L (4-12); Aspartate Amino Transferase 22 U/L (14-36); Bilirubin,Total 0.4 mg/dL (0.2-1.3); Blood Urea Nitrogen 14 mg/dL (7-17); Carbon Dioxide 25 mmol/L (22-30); Chloride 105 mmol/L (98-107); Cholesterol 254 mg/dL (0-200); Estimated Glomerular Filt Rate > 60; Glucose 88 mg/dL (65-110); HDL Direct 47 mg/dL; Sodium 139 mmol/L (137-145); Triglycerides 241 mg/dL (<150)
[2024-02-24 11:12] LABS: Hemoglobin A1C 5.1 % (<5.7)
[2024-02-24 11:15] LABS: LDL Cholesterol Direct 154 mg/dL
[2024-02-24 11:18] LABS: Creatinine Urine 178.2 mg/dL
[2024-02-24 11:25] LABS: MALB Creatinine Ratio 5.2 mg/g (0-30); Microalbumin Urine Random 9.3 mg/L (0-16.7)
[2024-02-24 11:37] LABS: Free T4 Free Thyroxine 0.82 ng/dL (0.78-2.19); Vitamin D 25 Hydroxy 44.1 ng/mL
[2024-02-24 12:38] LABS: Iron 53 ug/dL (37-170); Percent Iron Saturation 15 % (20-50)
== END 2024-02-24 10:11 | disposition home or self-care (01) ==
PROVIDERS: PCP Nurse Practitioner Family; Referring Provider Obstetrics & Gynecology; Visit Provider Anesthesiology
DX: E11.9 Type 2 diabetes mellitus without complications (principal); E03.8 Other specified hypothyroidism; E06.3 Autoimmune thyroiditis
CPT/HCPCS: 36415; 80053; 80061; 82043; 82306; 82607; 82728; 83036; 83540; 83550; 84439; 84443; 85025

== ENCOUNTER 2024-02-26 03:40 | Day surgery (SDC) | payer BC, MEDICAID, SELFPAY ==
[2024-02-16 13:41] VITALS: BMI 43.1
--- NOTE | 2024-02-16 14:16 | PC.NURSE ---
Report to the Outpatient Waiting Room, entrance under the green pavilion located off [facility], at time _0615 on date _02/26/24 . Planned Procedure Time: _08 .? Time changes happen often and if your time is changed the preop area will call you the afternoon before. - You and your visitor will be asked to self-screen and do not enter if you have any COVID symptoms. Please call surgeon if you need to reschedule. - A mask is optional within the hospital at this time. Patients may have clear liquids (water, carbonated beverages, clear teas, apple juice) until 3 hours prior to surgery with a maximum of 20 ounces. - No food from midnight until time of surgery and no smoking. This includes no chewing gum, candy or mints. Take only the following medications with a SIP of water on the morning of surgery: __SYNTHROID DO NOT STOP ANY OF YOUR OTHER PRESCRIPTION MEDICATIONS PRIOR TO SURGERY EXCEPT THE FOLLOWING Medications to discontinue per physician OVER THE COUNTER IRON Date to take last dose___02/23/24 Please no make-up, nail cambodian, hairspray, perfume, deodorant, or body powder the day of surgery.? No jewelry (including any body piercings) or valuables the day of surgery, leave them at home.? Please take a shower or bath the night before, or the morning of, surgery with an antibacterial soap.? Wear comfortable, loose fitting clothing.? - Jewelry must be removed prior to entering the operating room.? Rings and piercings that are not removed may be cut off. - The hospital will not accept responsibility for valuables.? - Please leave all valuables, including medications, at home the day of surgery. If you are going home after surgery, a licensed package delivery driver must drive you home.? - NO public transportation without another adult if you receive anesthesia. - We recommend that an adult stay with you for 24 hours following discharge. - We also recommend that you do not drive, make important decision, drink alcoholic beverages, or take any drugs that were not prescribed by your health care provider for at least 24 hours after your discharge time. Follow any additional instructions given to you from your surgeon. Telephone instructions given to ARIK and asked if any additional questions and then verbalized understanding. Patient advised to call surgeon office or pre surgery nurse liaison [phone] if any additional questions.
--- NOTE | 2024-02-26 07:04 | WPDANESEPPF ---
Anes - Initial Pre Proc Eval Procedure: Operation Date: 02/26/24 08:15 Proposed Procedures p Hysteroscopy Dilation and Curettage with Janet Endometrial Ablation - Adeel Stallings MD Date/Time: 02/26/24 07:04 Surgeon: Adeel Stallings MD Pre Op Diagnosis: Abnormal Uterine Bleeding Patient Data Age: 39 Gender: F Height: 1.7 m Weight: 125 kg Allergies Allergy/AdvReac Type Severity Reaction Status Date / Time hydroxyzine Allergy Intermediate Hives Verified 02/16/24 14:22 Home Medications Medication Instructions Recorded Confirmed Type levothyroxine 100 mcg tablet 100 mcg PO DAILY 02/17/23 02/16/24 History (Synthroid) levothyroxine 25 mcg capsule 25 mcg PO DAILY 06/10/23 02/16/24 History ferrous sulfate 325 mg (65 mg 325 mg PO DAILY 02/16/24 02/16/24 History iron) tablet (Iron (ferrous sulfate)) semaglutide 2 mg/dose (8 mg/3 mL) 2 mg subcut WEEKLY 02/16/24 02/16/24 History subcutaneous pen injector (Ozempic) Patient hx anesthesia problems: none Family hx anesthesia problems: none Results Review: All pre-operative results and documents have been reviewed as part of the pre-operative evaluation. PMFSH Past Medical History Medical History Abnormal glucose tolerance in Anemia due to vitamin B12 deficiency Diabetes Encounter for screening examination for sexually transmitted disease Gestational diabetes Geetha's disease HSV-1 infection HSV-2 infection Hypothyroidism Morbid obesity with BMI of 40.0-44.9, adult Obesity Smoker Surgical History Surgical History Delivery by section (03/06/17) rpt c/s Delivery by section (09/07/10) rpt c/s Delivery by section (07/21/04) primary c/s H/O rectal sphincterotomy Lateral internal sphincterotomy 10/03/2021 History of colposcopy History of gynecological procedure (02/28/21) suction D&C missed AB History of tonsillectomy Family History Family History Other Hypertension maternal aunt Mother Acute myocardial infarction Social History Social History Smoking packs per day: 0.5 Smoking cigarettes per day: 10.0 Years smoked: 28 Smoking pack-years: 14.00 Smoking status: Current every day smoker Tobacco type: cigarettes Second hand tobacco smoke exposure: Yes Additional smoking assessment comments: cigarettes 1/2ppd x 20 years Alcohol intake: current Drinks per week: 1 Alcohol use details: 1 per month Substance use: former Substance use type: does not use Last use: 20 + years Do You Feel Safe in your Home?: Yes Lack of Transportation: No Lack of Food: Never True Current Housing: Decline to Answer Concerned About Future Housing: Decline to Answer Difficulty Paying Gas/Electric Bills: Decline to Answer Difficulty Paying for Meds: Decline to Answer Currently Unemployed: Decline to Answer Education: Decline to Answer Difficulty w/ Childcare or Family Care: Decline to Answer Living arrangements: with family Additional living arrangements comments: single Occupation/Education: occupation 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 Gender identity (if verbalized by the patient): Female Sexual Orientation (if Verbalized by the Patient): Straight or Heterosexual Spiritual care concerns: No Anes - Eval Final PreProcedure Day of Procedure 02/26/24 07:04 Patient weight: morbidly obese Heart: regular rate and rhythm Lungs: decreased breath sounds Airway: Mallampati scale class II Neurological: alert and oriented Last oral intake: >/= 8 hours ASA classification: III Emergent: no Anesthetic plan: proceed Anesthesia type and monitoring: general GIVS and standard monitoring Results Review: All pre-operative results and documents have been reviewed as part of the pre-operative evaluation. Informed Consent: The patient's anesthetic plan and its attendant risks and benefits were discussed with the patient/family/POA. Questions were solicited and answers provided to the satisfaction of the patient/family/POA.
--- NOTE | 2024-02-26 07:12 | WPDHPUPDATE1 ---
History and Physical Update Update Date/Time: 02/26/24 07:12 Assessment: 1. Menometrorrhagia 2. Dysmenorrhea Plan: 1. Hysteroscopy with uterine curettings 2. Endometrial ablation History and Physical has been reviewed, including an updated exam of the patient. There are NO changes in the patient's condition. Risks, benefits, and alternatives have been discussed and questions answered. Patient agrees to proceed with procedure.
[2024-02-26 07:13] LABS: Glucose Point of Care 102 mg/dl (65-105)
[2024-02-26 07:20] VITALS: BP 126/69; PULSE 85; TEMP 36.6; O2SAT 99; BMI 42.9
[2024-02-26] MEDS: ACETAMINOPHEN 500 MG TABLET 1000 MG PO (07:26)
[2024-02-26] MEDS: LACTATED RINGERS 1,000 ML 30 ML IV CONT (07:26)
[2024-02-26] MEDS: ceFAZolin 3 GM/D5W 100 ML 100 ML IVPB (08:17)
--- NOTE | 2024-02-26 08:41 | W.PM.PROC2 ---
Procedure Note - Detailed Date of Procedure 02/26/24 Pre-op Diagnosis 1. Menometrorrhagia 2. Dysmenorrhea Post-op Diagnosis Same Procedure Performed 1. Hysteroscopy with uterine curettings 2. Endometrial ablation Surgeon Adeel Stallings MD Anesthesia MAC Findings Slightly thickened endometrial cavity, no other polyps or fibroids noted Description of Procedure Patient prepped in usual manner for this procedure. Cervix was dilated to allow the hysteroscope be placed which revealed findings as noted above. Curettings were obtained of all 4 quadrants and then the endometrial ablation instrument was placed. Cavity assessment with formed and cycle was activated. At the end of the cycle hysteroscopic exam revealed good destruction throughout. At this point the procedure was considered terminated and the patient was sent to recovery room in stable condition. Estimated Blood Loss 10 Drains No Packing No Pathology Yes Complications No immediate complications Condition Stable Disposition PACU [facility] Billing Surgery - Charge Forward: Surgery Billing
[2024-02-26 08:42] VITALS: BP 129/70; PULSE 79; RESP 12; O2SAT 97
[2024-02-26 09:10] VITALS: BP 125/59; PULSE 83; RESP 18
[2024-02-26] MEDS: oxyCODONE HCL (*CRX) 5 MG TAB IR PO (09:23)
[2024-02-26 09:40] VITALS: BP 111/72; PULSE 91; RESP 118
--- NOTE | 2024-02-26 10:28 | SUR.OPER ---
Fluid Deficit 30
== END 2024-02-26 10:05 | disposition home or self-care (01) ==
PROVIDERS: PCP Nurse Practitioner Family; Visit Provider Obstetrics & Gynecology
PROC: 0U5B8ZZ Destruction of Endometrium, Via Natural or Artificial Opening Endoscopic (ICD-10-PCS; CPT 58563; principal; 2024-02-26 08:15)
DX: N92.1 Excessive and frequent menstruation with irregular cycle (principal); N94.6 Dysmenorrhea, unspecified; E06.3 Autoimmune thyroiditis; E11.9 Type 2 diabetes mellitus without complications; D51.3 Other dietary vitamin B12 deficiency anemia; E66.01 Morbid (severe) obesity due to excess calories; Z68.41 Body mass index [BMI] 40.0-44.9, adult; Z79.85 Long-term (current) use of injectable non-insulin antidiabetic drugs; F17.210 Nicotine dependence, cigarettes, uncomplicated
CPT/HCPCS: 58563; 82948; 88305; A9270; J0690; J2003; J2250; J2270; J2704; J7030; J7120

== ENCOUNTER 2024-09-18 11:05 | Outpatient (CLI) | payer BC, MEDICAID, SELFPAY ==
--- NOTE | ~2024-09-18 | MR_ITS ---
MRI of the left knee Clinical history: Pain Technique: Coronal proton density and proton density-weighted images, sagittal proton-density and T2 fat-sat images, and axial proton-density fat-saturated images were acquired. Findings: Anterior and posterior cruciate ligaments are intact. Medial collateral ligament and the la teral collateral ligament complex are intact. Popliteus tendon is intact. Medial and lateral menisci are intact, without evidence of tear. There is focal moderate chondromalacia the patellar apex. Remaining articular cartilage is well prese rved. Bone marrow signals are unremarkable. Extensor mechanism is intact. No joint effusion. Small Lucas's cyst. 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 Small Lucas's cyst. Reviewed, dictated and finalized at location . 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 Small Lucas's cyst.
== END 2024-09-18 11:06 | disposition home or self-care (01) ==
PROVIDERS: PCP Nurse Practitioner Family; Visit Provider Nurse Practitioner Family
DX: M25.562 Pain in left knee (principal); M71.22 Synovial cyst of popliteal space [Baker], left knee
CPT/HCPCS: 73721

== ENCOUNTER 2024-11-26 10:33 | Emergency (ER) | payer BC, MEDICAID, SELFPAY ==
--- NOTE | 2024-11-26 10:35 | ED.URI ---
HPI - URI/Sore Throat General Chief Complaint: Upper Respiratory Infection Stated Complaint: Strep Symptoms Time Seen by Provider: 11/26/24 11:00 Source: patient, RN notes reviewed and old records reviewed Mode of arrival: ambulatory Limitations: no limitations History of Present Illness HPI Narrative: 39-year-old female presents to the [facility] with a sore throat and cough that started Friday, 2 days ago. She also had some postnasal drainage as well as chills. No treatment prior to arrival. Related Data Home Medications ?Medication ?Instructions ?Recorded ?Confirmed ?Last Taken ?Type levothyroxine 100 mcg tablet 100 mcg PO DAILY 02/17/23 05/11/24 Unknown History (Synthroid) ferrous sulfate 325 mg (65 mg 325 mg PO DAILY 02/16/24 05/11/24 Unknown History iron) tablet (Iron (ferrous sulfate)) semaglutide 2 mg/dose (8 mg/3 mL) 2 mg subcut WEEKLY 02/16/24 05/11/24 Unknown History subcutaneous pen injector (Ozempic) cyanocobalamin (vitamin B-12) mcg subcut 05/11/24 05/11/24 Unknown History 1,000 mcg/mL injection solution omeprazole 40 mg capsule,delayed mg PO 05/11/24 05/11/24 Unknown History release phentermine 37.5 mg tablet mg PO 05/11/24 05/11/24 Unknown History Allergies Allergy/AdvReac Type Severity Reaction Status Date / Time hydroxyzine Allergy Intermediate Hives Verified 11/26/24 10:38 Review of Systems Review of Systems: All systems reviewed & are unremarkable except as noted in HPI and below Constitutional: Constitutional: Reports as per HPI and Reports chills ENT: Reports as per HPI and Reports sore throat Cardiovascular: Cardiovascular: Reports no additional cardiovascular complaints, Denies chest pain and Denies dyspnea Respiratory: Respiratory: Reports as per HPI, Denies chest congestion, Reports cough and Denies dyspnea Musculoskeletal: Musculoskeletal: Reports no additional musculoskeletal complaints Integumentary/Breasts: Skin/Breast: Reports system reviewed and no additional complaints, except as docu PMFSH Past Medical History Medical History Encounter for screening examination for sexually transmitted disease Gestational diabetes Abnormal glucose tolerance in Smoker Hypothyroidism Diabetes Morbid obesity with BMI of 40.0-44.9, adult Geetha's disease HSV-2 infection HSV-1 infection Obesity Anemia due to vitamin B12 deficiency Surgical History Surgical History History of hysteroscopy (02/26/24) Hysteroscopy with uterine curettings 2. Endometrial ablation H/O rectal sphincterotomy Lateral internal sphincterotomy 10/03/2021 Delivery by section (07/21/04) primary c/s Delivery by section (09/07/10) rpt c/s Delivery by section (03/06/17) rpt c/s History of gynecological procedure (02/28/21) suction D&C missed AB History of tonsillectomy History of colposcopy Family History Family History Other Hypertension maternal aunt Mother Acute myocardial infarction Social History Social History Smoking packs per day: 0.5 Smoking cigarettes per day: 10.0 Years smoked: 28 Smoking pack-years: 14.00 Smoking status: Current every day smoker Tobacco type: cigarettes Second hand tobacco smoke exposure: Yes Additional smoking assessment comments: cigarettes 1/2ppd x 20 years Alcohol intake: current Drinks per week: 1 Alcohol use details: 1 per month Substance use: former Substance use type: does not use Last use: 20 + years Do You Feel Safe in your Home?: Yes Lack of Transportation: No Lack of Food: Never True Current Housing: I Have Housing Concerned About Future Housing: No Difficulty Paying Gas/Electric Bills: No Difficulty Paying for Meds: No Currently Unemployed: No Education: High School Diploma/GED Difficulty w/ Childcare or Family Care: No Living arrangements: with family Additional living arrangements comments: single Occupation/Education: occupation Additional occupation/education comments: [employer] Gender identity (if verbalized by the patient): Female Sexual Orientation (if Verbalized by the Patient): Straight or Heterosexual Spiritual care concerns: No Comments At the time of my signature, I reviewed and agree with the nursing past medical, surgical, social, and family history. There is no relevant family history pertinent to the patient complaint. Exam Const: General: cooperative, healthy appearing, comfortable, no acute distress, well developed, alert and well nourished Nutritional Appearance: well nourished and obese Orientation/consciousness: patient oriented x3 Limitations: no limitations HENMT: Head: normal to inspection Ears: hearing grossly normal bilaterally, TM's normal bilaterally, EAC's normal, mastoids normal and no periauricular adenopathy Mouth: Yes Normal oral and palatal mucosa present, Yes lip normal, Yes tongue normal and Yes moist mucous membranes Throat: posterior oropharynx normal, uvula midline, postnasal drainage and no uvular edema Eyes: General: appearance normal, both eyes and all related structures Alignment and Position: alignment normal Neck: Neck: normal visual inspection, full ROM, no lymphadenopathy and no meningeal signs Chest: Chest palpation & inspection: normal inspection of the chest Resp: Effort & Inspection: normal respiratory effort and able to speak in complete sentences Auscultation: clear to auscultation bilaterally, no crackles, no rales, no rhonchi and no wheezes Cardio: Rate: regular rate Skin: General skin exam: normal color and no rashes or lesions noted Neuro: General: patient oriented x3, gait normal, moves all extremities and no meningeal signs Cognition (Neuro): normal cognition Speech: normal speech Gait exam (Neuro): Normal gait present Extrem: General: normal to inspection, full ROM, capillary refill normal and normal gait Psych: Appearance: grossly normal and well kempt Mental Status: mental status grossly normal Speech and movement: Normal speech and movement present and Clear speech present Affect: normal affect Attitude: cooperative Course Course Level of Care: Express Care Visit Vital Signs Vital signs: Vital Signs Temperature 97.1 F L 11/26/24 10:46 Pulse Rate 79 11/26/24 10:46 Respiratory Rate 18 11/26/24 10:46 Blood Pressure 130/72 11/26/24 10:46 Pulse Oximetry 98 11/26/24 10:46 Oxygen Delivery Room Air 11/26/24 10:46 Temperature 97.1 F L 11/26/24 10:46 Pulse Rate 79 11/26/24 10:46 Respiratory Rate 18 11/26/24 10:46 Blood Pressure 130/72 11/26/24 10:46 Pulse Oximetry 98 11/26/24 10:46 Oxygen Delivery Room Air 11/26/24 10:46 Reviewed MDM - URI/Sore Throat MDM Narrative Medical decision making narrative: Patient sitting comfortably in exam room. Patient is nontoxic, vitals stable. Patient presents with 2 day history of URI, sore throat and cough. Flu, COVID, strep were all negative. Culture sent for strep Patient appropriate for outpatient treatment with [id number] products for viral URI Discharge instructions reviewed with patient, as well as provided in writing per nursing staff. The instructions also include specific and strict return/GO TO THE ER as well as f/u information. All questions have been answered, and the patient deny any further questions with discharge and discharge plan. Some parts of this dictation were generated by voice recognition software and may contain typographical and/or grammatical inaccuracies. Differential Diagnosis Differential diagnosis: Likely upper respiratory infection, otitis media, sinusitis, viral infection, bronchitis, influenza and pharyngitis Lab Data Labs: Lab Results 11/26/24 11/26/24 Range/Units 11:01 11:12 POC Influenza A Ag Negative (Negative) POC Influenza B Ag Negative (Negative) POC SARS CoV-2 Ag Negative (Negative) POC Grp A Strep Screen Negative (Negative) Reviewed Critical Care Time Critical Care Time Critical Care Time: No Discharge Plan Discharge Clinical Impression: Viral infection Upper respiratory infection Qualifiers: URI type: unspecified viral URI Qualified Code(s): J06.9 - Acute upper respiratory infection, unspecified Patient Disposition: Home Condition: Stable Instructions: Antibiotic Form, Upper Respiratory Infection (ED), Viral Syndrome (ED), Postnasal Drip (DC) Additional Instructions: Your rapid strep swab was negative today at [facility]. A throat culture will be sent to the laboratory for further testing. If the test is positive, you will receive a phone call within 48 hours and an appropriate antibiotic will be initiated at that time. Your rapid COVID test were negative Your rapid flu test was negative Your symptoms are likely due to a viral illness, which is not treated with antibiotics. Typically viral infections last 7-10 days, can linger for couple of weeks. It is very important to treat your symptoms. Drink plenty of water, Gatorade, Pedialyte, ice pops or Jell-O. -Alternate Tylenol and Motrin per package directions for fever or pain. You can alternate every 4 hours -Antihistamine medication such as Zyrtec/Claritin/Zena during the day can help improve symptoms. -doing daily nasal irrigations can help relieve pressure your sinuses. Things like a Neti pot -Use Flonase twice a day for 5 days then daily to help reduce the inflammation and dry up your sinuses. -You can also use Mucinex. Be sure to drink plenty of water with this medication at least 8 ounces with every dose and it is important to drink 8 to 10 glasses of water per day. Water is a natural decongestant -Eat and drink things that are easy to swallow, like tea or soup, or popsicles. -Oral rinses such as: Salt water gargles and/or may use topical anesthetic (eg. Chloraseptic spray) or lozenges to relieve dryness or throat pain). -Frequent hand washing or hand coin machine assembler is one of the best ways to prevent spread of infection. -Using a vaporizer or humidifier at night will also help thin secretions and help with coughing up phlegm. -Follow up with primary care provider in 7-10 days if condition is not improving - For new or worsening symptoms go directly to the nearest ER Patient Language: Yoruba Prescriptions: No Action levothyroxine [Synthroid] 100 mcg tablet 100 mcg PO DAILY phentermine 37.5 mg tablet PO omeprazole 40 mg capsule,delayed release(DR/EC) PO cyanocobalamin (vitamin B-12) 1,000 mcg/mL solution subcut Ozempic 2 mg/dose (8 mg/3 mL) pen injector 2 mg SUBCUT WEEKLY Rx Instructions: FOR PRE DIABETES ferrous sulfate [Iron (ferrous sulfate)] 325 mg (65 mg iron) Tablet 325 mg PO DAILY Follow-up/Referrals: PHYSICIAN,[facility]ATE [facility] [Primary Care Provider, Internal Medicine] Stand Alone Forms: Work/School Release IP Time of Disposition: 11:06
[2024-11-26 10:46] VITALS: BP 130/72; PULSE 79; RESP 18; TEMP 36.2; O2SAT 98
[2024-11-26 11:05] LABS: EDSTREPNEGPOS1 Negative (Negative)
[2024-11-26 11:14] LABS: EDCOVIDSCREEN Negative (Negative); EDINFLUASCREEN Negative (Negative); EDINFLUBSCREEN Negative (Negative)
== END 2024-11-26 11:10 | disposition home or self-care (01) ==
PROVIDERS: Emergency Provider Nurse Practitioner
DX: B34.9 Viral infection, unspecified (principal); J06.9 Acute upper respiratory infection, unspecified; Z20.822 Contact with and (suspected) exposure to COVID-19; F17.210 Nicotine dependence, cigarettes, uncomplicated; E11.9 Type 2 diabetes mellitus without complications; Z79.85 Long-term (current) use of injectable non-insulin antidiabetic drugs; E06.3 Autoimmune thyroiditis; D51.9 Vitamin B12 deficiency anemia, unspecified; E66.01 Morbid (severe) obesity due to excess calories; Z68.41 Body mass index [BMI] 40.0-44.9, adult
CPT/HCPCS: 87081; 87426; 87804; 87880; 99213; G0463